=== PATIENT | female | born 1945 | race Two or more races ===

== ENCOUNTER 2023-10-11 15:48 | Inpatient (IN) | payer OTHER ==
[~2023-10-11] VITALS: Ht 157.5 cm; Wt 55.8 kg
[2023-10-11 16:18] LABS: Basophils # (auto) 0 10 ^3/uL (0-0.2); Basophils % (auto) 0.4 % (0.0-2.0); Eosinophils # (auto) 0.1 10 ^3/uL (0-0.8); Hematocrit 35.9 % (36.0-46.0); Hemoglobin 11.7 g/dL (12.2-16.2); Lymphocytes # (auto) 1.8 10 ^3/uL (0.4-5.4); Lymphocytes % (auto) 29.7 % (10.0-50.0); Mean Corpuscular Hemoglobin 27.5 pg (28.0-32.0); Mean Corpuscular Hgb Conc. 32.6 g/dL (32.0-36.0); Mean Corpuscular Volume 84.4 fL (80.0-100.0); Monocytes # (auto) 0.5 10 ^3/uL (0-1.3); Monocytes % (auto) 8.2 % (0.0-12.0); Neutrophils # (auto) 3.6 10 ^3/uL (1.6-8.6); Neutrophils % (auto) 60.7 % (37.0-80.0); Nucleated Red Blood Cells % 0.1 %; Red Blood Cells 4.25 10^6/uL (4.0-5.20); Red Cell Distribution Width 16.1 % (11.8-14.3)
[2023-10-11 16:19] LABS: Urine Epithelial Cast None Seen /hpf (<5)
[2023-10-11 16:27] LABS: Chloride 106 mmol/L (98-107); Potassium 3.5 mmol/L (3.5-5.1); Sodium 138 mmol/L (136-145)
[2023-10-11 16:28] LABS: Anion Gap 5 (5-15); Calcium 9.4 mg/dL (8.7-10.4); Carbon Dioxide 27 mmol/L (20-30)
[2023-10-11 16:33] LABS: BUN/Creatinine Ratio 15.8 (10.0-20.0); Blood Urea Nitrogen 15 mg/dL (9-23); Glucose 93 mg/dL (74-106)
[2023-10-11 16:38] LABS: Urine Bacteria NONE SEEN /hpf (None Seen); Urine Blood 1+ /uL (Negative); Urine Clarity Clear (Clear); Urine Color Yellow (Yellow); Urine Protein, UAD Negative (Negative); Urine Specific Gravity 1.016 (1.001-1.035); Urine Urobilinogen Normal (Negative); Urine WBC 1 /hpf (0 - 5); Urine pH 5.5 (5.0-8.0)
[2023-10-11] MEDS ORDERED: ONDANSETRON HCL 4 MG/2 ML VIAL IV ONE (17:00)
[2023-10-11] MEDS ORDERED: cefTRIAXone 1GM/50ML D5W 50 ML IV ONE (17:00)
[2023-10-11] MEDS ORDERED: SODIUM CHLORIDE 0.9% 1,000 ML IV ONE (17:00)
[2023-10-11] MEDS ORDERED: LOSA50TA46 PO (18:51)
[2023-10-11] MEDS ORDERED: LOVA40TA72 PO (18:51)
[2023-10-11] MEDS ORDERED: PANTOPRAZOLE 40 MG TAB PO ONE (19:00)
[2023-10-11] MEDS ORDERED: ONDANSETRON HCL 4 MG/2 ML VIAL IV PRN (19:00)
[2023-10-11] MEDS ORDERED: DOCUSATE SOD 100 MG CAP PO PRN (19:00)
[2023-10-11] MEDS ORDERED: ACETAMINOPHEN 325 MG TAB PO PRN (19:00)
[2023-10-11] MEDS ORDERED: HYDROcodone-ACET 5/325MG TAB PO PRN (19:00)
[2023-10-12] MEDS: PRAVASTATIN SODIUM 20 MG TAB PO SCH ×2 (01:04→21:59)
[2023-10-12 04:54] LABS: Basophils # (auto) 0 10 ^3/uL (0-0.2); Basophils % (auto) 0.6 % (0.0-2.0); Eosinophils # (auto) 0.1 10 ^3/uL (0-0.8); Eosinophils % (auto) 1.8 % (0.0-7.0); Hematocrit 33.9 % (36.0-46.0); Hemoglobin 11.1 g/dL (12.2-16.2); Lymphocytes # (auto) 1.7 10 ^3/uL (0.4-5.4); Lymphocytes % (auto) 30.4 % (10.0-50.0); Mean Corpuscular Hemoglobin 27.7 pg (28.0-32.0); Mean Corpuscular Hgb Conc. 32.9 g/dL (32.0-36.0); Mean Corpuscular Volume 84.3 fL (80.0-100.0); Monocytes # (auto) 0.5 10 ^3/uL (0-1.3); Monocytes % (auto) 8.6 % (0.0-12.0); Neutrophils # (auto) 3.3 10 ^3/uL (1.6-8.6); Neutrophils % (auto) 58.6 % (37.0-80.0); Nucleated Red Blood Cells % 0.1 %; Red Blood Cells 4.02 10^6/uL (4.0-5.20); Red Cell Distribution Width 15.6 % (11.8-14.3); White Blood Cell 5.6 10^3/uL (4.4-10.8)
[2023-10-12 05:02] LABS: Chloride 109 mmol/L (98-107); Potassium 3.8 mmol/L (3.5-5.1); Sodium 140 mmol/L (136-145)
[2023-10-12 05:03] LABS: Anion Gap 9 (5-15); Calcium 8.9 mg/dL (8.7-10.4); Carbon Dioxide 22 mmol/L (20-30)
[2023-10-12 05:07] LABS: Alkaline Phosphatase 88 U/L (46-116)
[2023-10-12 05:08] LABS: Blood Urea Nitrogen 13 mg/dL (9-23); Glucose 51 mg/dL (74-106)
[2023-10-12 05:10] LABS: Albumin 3.8 g/dL (3.2-4.8); Aspartate Aminotransferase 16 U/L (13-40); Bilirubin, Total 0.8 mg/dL (0.2-1.0); Total Protein 6.1 g/dL (5.7-8.2)
[2023-10-12 05:46] LABS: Alanine Aminotransferase 12 U/L (7-40)
[2023-10-12] MEDS: cefTRIAXone 1GM/50ML D5W 50 ML IV SCH (09:52)
[2023-10-12] MEDS: LOSARTAN POTASSIUM 50 MG TAB PO SCH (09:56)
[2023-10-12] MEDS ORDERED: PANTOPRAZOLE 40 MG TAB PO SCH (10:00)
[2023-10-12] MEDS: D5W/SOD CHLO 0.9% 1,000 ML IV SCH (13:03)
[2023-10-12 18:21] LABS: INR 1.13 (0.9-1.15); Partial Thromboplastin Time 28.3 SEC (24.5-34.5); Prothrombin Time 11.8 sec (9.3-11.8)
[2023-10-12 22:21] VITALS: PULSE 72; RESP 17; O2SAT 97
[2023-10-12 23:00] VITALS: BP 114/49; PULSE 67; RESP 19; TEMP 97.9; O2SAT 95
[2023-10-12 23:26] VITALS: BP 149/73; PULSE 68; RESP 18; TEMP 98.2; O2SAT 96
[2023-10-13] VITALS (7 sets, daily range): BP systolic 120–137; BP diastolic 53–58; PULSE 19–71; RESP 18–100; TEMP 97.9–98.2; O2SAT 95–100
[2023-10-13] MEDS: D5W/SOD CHLO 0.9% 1,000 ML IV SCH (00:46)
[2023-10-13] MEDS ORDERED: NALOXONE HCL 0.4 MG/ML VIAL ONE (08:36)
[2023-10-13] MEDS ORDERED: FLUMAZENIL 0.1 MG/ML INJ 10ML MDV IV ONE (08:37)
[2023-10-13] MEDS: cefTRIAXone 1GM/50ML D5W 50 ML IV SCH (09:00)
[2023-10-13] MEDS ORDERED: PANTOPRAZOLE 40 MG/10 ML VIAL INJ IV SCH (10:00)
[2023-10-13] MEDS: LOSARTAN POTASSIUM 50 MG TAB PO SCH (10:00)
[2023-10-13] MEDS ORDERED: SODIUM CHLORIDE LOCK 10 ML ONE (10:43)
[2023-10-13] MEDS ORDERED: LIDOCAINE VISCOUS 2% 15ML UD ONE (10:44)
[2023-10-13] MEDS: diphenhdrAMINE HCL 50 MG/1 ML VL ONE ×2 (11:07→11:14)
[2023-10-13] MEDS: MIDAZOLAM HCL 5 MG/ML-1ML VIAL ONE ×4 (11:07→11:18)
[2023-10-13] MEDS: fentaNYL CITRATE 100 MCG/2 ML VL ONE ×2 (11:07→11:14)
[2023-10-13] MEDS: SUCRALFATE 1 GM/10 ML ORAL SUSP PO SCH ×2 (17:00→21:57)
[2023-10-13] MEDS: PRAVASTATIN SODIUM 20 MG TAB PO SCH (21:57)
[2023-10-13] MEDS: PANTOPRAZOLE 40 MG/10 ML VIAL INJ IV SCH (21:57)
[2023-10-14 05:00] VITALS: BP 126/43; PULSE 66; RESP 19; TEMP 98.2; O2SAT 99
[2023-10-14] MEDS: SUCRALFATE 1 GM/10 ML ORAL SUSP PO SCH ×2 (06:01→12:14)
[2023-10-14 08:00] VITALS: BP 119/60; PULSE 66; RESP 18; TEMP 98.4; O2SAT 95
[2023-10-14 09:00] VITALS: BP 119/60; PULSE 66; RESP 18; TEMP 98.4; O2SAT 95
[2023-10-14] MEDS: PANTOPRAZOLE 40 MG/10 ML VIAL INJ IV SCH (09:31)
[2023-10-14] MEDS: LOSARTAN POTASSIUM 50 MG TAB PO SCH (09:31)
[2023-10-14] MEDS: cefTRIAXone 1GM/50ML D5W 50 ML IV SCH (09:31)
[2023-10-14 13:00] VITALS: BP 133/59; PULSE 79; RESP 19; TEMP 97.9; O2SAT 97
[2023-10-14 14:50] VITALS: BP 133/59; PULSE 79; RESP 19; TEMP 97.9; O2SAT 97
[2023-10-14 17:00] VITALS: BP 104/70; PULSE 72; RESP 18; TEMP 98.1; O2SAT 98
== END 2023-10-14 17:34 | disposition home or self-care (01) | DRG 394 ==
LOC: ER 15:48 → OVERFLOW 18:49 → EAST 10-12 23:00
PROVIDERS: ADMIT Nurse Practitioner Family; ATTEND Nurse Practitioner Acute Care
PROC: 0DB68ZX Excision of Stomach, Via Natural or Artificial Opening Endoscopic, Diagnostic (ICD-10-PCS; 2023-10-13)
PROC: 0DB48ZX Excision of Esophagogastric Junction, Via Natural or Artificial Opening Endoscopic, Diagnostic (ICD-10-PCS; 2023-10-13)
PROC: 0DB98ZX Excision of Duodenum, Via Natural or Artificial Opening Endoscopic, Diagnostic (ICD-10-PCS; principal; 2023-10-13 11:01)
DX: T18.128A Food in esophagus causing other injury, initial encounter (principal); N30.00 Acute cystitis without hematuria; E78.5 Hyperlipidemia, unspecified; I10 Essential (primary) hypertension; K44.9 Diaphragmatic hernia without obstruction or gangrene; R13.12 Dysphagia, oropharyngeal phase; K29.70 Gastritis, unspecified, without bleeding; K21.00 Gastro-esophageal reflux disease with esophagitis, without bleeding; K22.2 Esophageal obstruction; Z87.11 Personal history of peptic ulcer disease
CPT/HCPCS: 36415; 71045; 74176; 80048; 80053; 81001; 85025; 85610; 85730; 86850; 86900; 86901; 87086; 93005; 96365; 96375; C9113; G0378; J2250; J2405

== ENCOUNTER 2023-10-21 09:32 | Emergency (ER) | payer OTHER ==
[~2023-10-21] VITALS: Ht 157.5 cm; Wt 55.4 kg
[~2023-10-21 09:32] MED LIST: LOSA50TA46 PO; LOVA40TA72 PO
[2023-10-21 10:16] VITALS: BP 135/61; PULSE 81; RESP 16; TEMP 98; O2SAT 97
[2023-10-21] MEDS ORDERED: AMOX875T3 PO (10:26)
[2023-10-21] MEDS ORDERED: ACET-1080 PO (10:26)
== END 2023-10-21 10:30 | disposition home or self-care (01) ==
LOC: ER 09:32
DX: H66.92 Otitis media, unspecified, left ear (principal); I10 Essential (primary) hypertension; Z79.2 Long term (current) use of antibiotics; Z79.899 Other long term (current) drug therapy

== ENCOUNTER → 2024-06-12 | Outpatient (CLI) | payer OTHER, MEDICAID ==
[~2024-06-12] MED LIST changes: +ACET-1080 PO; +AMOX875T3 PO; +LOSA-534 PO; -LOSA50TA46 PO
== END | disposition home or self-care (01) ==
LOC: EDSTATUS 09:36 → XYW 09:37
PROVIDERS: ATTEND Internal Medicine
DX: Z01.810 Encounter for preprocedural cardiovascular examination (principal); I10 Essential (primary) hypertension
CPT/HCPCS: 93306

== ENCOUNTER 2024-07-12 06:10 | Inpatient (IN) | payer OTHER, MEDICAID ==
[2024-07-10 12:40] LABS: Urine Bacteria None Seen /hpf (None Seen); Urine WBC None Seen /hpf (0 - 5)
[2024-07-10 12:56] LABS: Basophils # (auto) 0 10 ^3/uL (0-0.2); Basophils % (auto) 0.5 % (0.0-2.0); Eosinophils # (auto) 0.1 10 ^3/uL (0-0.8); Eosinophils % (auto) 0.8 % (0.0-7.0); Hematocrit 37.7 % (36.0-46.0); Hemoglobin 12.5 g/dL (12.2-16.2); Lymphocytes # (auto) 1.9 10 ^3/uL (0.4-5.4); Lymphocytes % (auto) 29.6 % (10.0-50.0); Mean Corpuscular Hemoglobin 28.8 pg (28.0-32.0); Mean Corpuscular Hgb Conc. 33.3 g/dL (32.0-36.0); Mean Corpuscular Volume 86.6 fL (80.0-100.0); Monocytes # (auto) 0.6 10 ^3/uL (0-1.3); Monocytes % (auto) 8.9 % (0.0-12.0); Neutrophils # (auto) 3.9 10 ^3/uL (1.6-8.6); Neutrophils % (auto) 60.2 % (37.0-80.0); Platelet Count (auto) 275 10^3/uL (140-450); Red Blood Cells 4.35 10^6/uL (4.0-5.20); Red Cell Distribution Width 15.3 % (11.8-14.3); White Blood Cell 6.4 10^3/uL (4.4-10.8)
[2024-07-10 13:06] LABS: Urine Blood Negative /uL (Negative); Urine Clarity Clear (Clear); Urine Color Yellow (Yellow); Urine Protein, UAD Negative (Negative); Urine Specific Gravity 1.027 (1.001-1.035); Urine Urobilinogen Normal (Negative)
[2024-07-10 13:15] LABS: INR 1.03 (0.9-1.15); Prothrombin Time 10.9 sec (9.3-11.8)
[2024-07-10 13:43] LABS: Alanine Aminotransferase 13 U/L (7-40); Albumin 4.2 g/dL (3.2-4.8); Alkaline Phosphatase 121 U/L (46-116); Anion Gap 5 (5-15); Aspartate Aminotransferase 16 U/L (13-40); Blood Urea Nitrogen 18 mg/dL (9-23); Calcium 9.6 mg/dL (8.7-10.4); Carbon Dioxide 28 mmol/L (20-31); Chloride 106 mmol/L (98-107); Glucose 83 mg/dL (74-106); Potassium 4.4 mmol/L (3.5-5.1); Sodium 139 mmol/L (136-145)
[2024-07-10 13:44] LABS: Bilirubin, Total 0.4 mg/dL (0.2-1.0); Total Protein 6.8 g/dL (5.7-8.2)
[~2024-07-12] VITALS: Ht 157.5 cm; Wt 66.5 kg
[2024-07-12] VITALS (7 sets, daily range): BP systolic 117–121; BP diastolic 46–72; PULSE 76–87; RESP 14–18; TEMP 97.6–99; O2SAT 92–100
[~2024-07-12 06:10] MED LIST changes: -AMOX875T3 PO; +OMEP20TA PO
[2024-07-12] MEDS: ceFAZolin 2 GM/D5W100ml 100 ML IV ONE (06:46)
[2024-07-12] MEDS ORDERED: ROCURONIUM 10MG/ML 10ML VIAL IV ONE ×2 (07:05→07:07)
[2024-07-12] MEDS ORDERED: PROPOFOL 10 MG/ML 20 ML IV ONE ×2 (07:05→07:07)
[2024-07-12] MEDS ORDERED: LIDOCAINE 1% INJ PF 5ML AMP ONE ×2 (07:07→07:39)
[2024-07-12] MEDS ORDERED: MIDAZOLAM HCL 2MG/2ML 2ml VIAL (1mg/ml) ONE (07:09)
[2024-07-12] MEDS: BUPIVACAINE 0.25% INJ 50ML VIAL ONE (07:14)
[2024-07-12] MEDS: LIDOCAINE W/ EPINEPHRINE 1% 20ML VIAL ONE (07:14)
[2024-07-12] MEDS ORDERED: DexAMETHasone SOD PHOS 10MG/1ML VIAL INJ ONE (07:39)
[2024-07-12] MEDS ORDERED: ONDANSETRON HCL 4 MG/2 ML VIAL ONE (07:39)
[2024-07-12] MEDS ORDERED: KETOROLAC TROMETH 30 MG/ML 1ML VIAL ONE (07:39)
[2024-07-12] MEDS ORDERED: MORPHINE SULF PF 5 MG/10 ML VIAL ONE (07:55)
[2024-07-12] MEDS ORDERED: SUGAMMADEX 200mg/2ml Vial (100MG/ML) IV ONE (08:16)
[2024-07-12] MEDS ORDERED: NALOXONE HCL 0.4 MG/ML VIAL IV PRN (08:30)
[2024-07-12] MEDS ORDERED: MORPHINE SULFATE 4 MG/ML SYR/VIAL IV PRN (08:30)
[2024-07-12] MEDS: ONDANSETRON HCL 4 MG/2 ML VIAL IV ONE (08:30)
[2024-07-12] MEDS: MORPHINE SULFATE 4 MG/ML SYR/VIAL IV PRN (08:44)
[2024-07-12] MEDS ORDERED: D5W/SOD CHL 0.45%/KCL 20MEQ 1,000 ML IV SCH (08:45)
[2024-07-12] MEDS: HYDROmorphone HCL 2 MG/ML VL/or syr ONE (09:10)
[2024-07-12] MEDS: HYDROmorphone HCL 2 MG/ML VL/or syr IV ONE (09:38)
[2024-07-12] MEDS: PANTOPRAZOLE 40 MG TAB PO SCH (11:05)
[2024-07-12] MEDS: D5W/SOD CHL 0.45%/KCL 20MEQ 1,000 ML IV SCH (11:05)
[2024-07-12] MEDS: ceFAZolin 2 GM/D5W50ml 50 ML IV SCH (14:00)
[2024-07-12] MEDS: ACETAMINOPHEN/CODEINE#3 (300/30mg) TAB PO PRN (18:11)
[2024-07-13] VITALS (7 sets, daily range): BP systolic 92–136; BP diastolic 47–61; PULSE 74–88; RESP 16–20; TEMP 97.4–99; O2SAT 91–99
[2024-07-13 05:44] LABS: Basophils # (auto) 0 10 ^3/uL (0-0.2); Basophils % (auto) 0.2 % (0.0-2.0); Eosinophils # (auto) 0 10 ^3/uL (0-0.8); Eosinophils % (auto) 0.1 % (0.0-7.0); Hematocrit 34.5 % (36.0-46.0); Hemoglobin 11.8 g/dL (12.2-16.2); Lymphocytes # (auto) 1.3 10 ^3/uL (0.4-5.4); Lymphocytes % (auto) 16.6 % (10.0-50.0); Mean Corpuscular Hemoglobin 29.6 pg (28.0-32.0); Mean Corpuscular Hgb Conc. 34.2 g/dL (32.0-36.0); Mean Corpuscular Volume 86.6 fL (80.0-100.0); Monocytes # (auto) 0.6 10 ^3/uL (0-1.3); Monocytes % (auto) 7.3 % (0.0-12.0); Neutrophils # (auto) 5.7 10 ^3/uL (1.6-8.6); Neutrophils % (auto) 75.8 % (37.0-80.0); Nucleated Red Blood Cells % 0.1 %; Platelet Count (auto) 216 10^3/uL (140-450); Red Blood Cells 3.98 10^6/uL (4.0-5.20); Red Cell Distribution Width 14.9 % (11.8-14.3); White Blood Cell 7.6 10^3/uL (4.4-10.8)
[2024-07-13 06:01] LABS: Alanine Aminotransferase 26 U/L (7-40); Albumin 3.8 g/dL (3.2-4.8); Alkaline Phosphatase 90 U/L (46-116); Anion Gap 6 (5-15); Aspartate Aminotransferase 44 U/L (13-40); BUN/Creatinine Ratio 12.1 (10.0-20.0); Blood Urea Nitrogen 12 mg/dL (9-23); Calcium 9.3 mg/dL (8.7-10.4); Carbon Dioxide 26 mmol/L (20-31); Chloride 104 mmol/L (98-107); Glucose 98 mg/dL (74-106); Potassium 4.2 mmol/L (3.5-5.1); Sodium 136 mmol/L (136-145)
[2024-07-13 06:02] LABS: Bilirubin, Total 0.7 mg/dL (0.2-1.0)
[2024-07-13] MEDS: HYDROmorphone HCL 2 MG/ML VL/or syr IV PRN (14:47)
[2024-07-13] MEDS ORDERED: MORPHINE SULFATE INJ 2 MG/ml SYRG IV PRN (15:30)
[2024-07-13] MEDS: D5W/SOD CHL 0.45%/KCL 20MEQ 1,000 ML IV SCH (16:52)
[2024-07-13] MEDS: ONDANSETRON HCL 4 MG/2 ML VIAL IV PRN (21:31)
[2024-07-14 01:00] VITALS: BP 116/56; PULSE 78; RESP 20; TEMP 98.1; O2SAT 95
[2024-07-14 05:00] VITALS: BP 137/58; PULSE 71; RESP 18; TEMP 97.8; O2SAT 93
[2024-07-14 06:10] LABS: Alanine Aminotransferase 13 U/L (7-40); Albumin 3.8 g/dL (3.2-4.8); Alkaline Phosphatase 97 U/L (46-116); Anion Gap 2 (5-15); Aspartate Aminotransferase 27 U/L (13-40); BUN/Creatinine Ratio 8.1 (10.0-20.0); Bilirubin, Total 0.5 mg/dL (0.2-1.0); Blood Urea Nitrogen 8 mg/dL (9-23); Calcium 9.3 mg/dL (8.7-10.4); Carbon Dioxide 27 mmol/L (20-31); Chloride 108 mmol/L (98-107); Glucose 92 mg/dL (74-106); Potassium 4.5 mmol/L (3.5-5.1); Sodium 137 mmol/L (136-145)
[2024-07-14 06:11] LABS: Basophils # (auto) 0 10 ^3/uL (0-0.2); Basophils % (auto) 0.4 % (0.0-2.0); Eosinophils # (auto) 0.1 10 ^3/uL (0-0.8); Eosinophils % (auto) 1.1 % (0.0-7.0); Hematocrit 34.3 % (36.0-46.0); Hemoglobin 11.7 g/dL (12.2-16.2); Lymphocytes # (auto) 1.5 10 ^3/uL (0.4-5.4); Lymphocytes % (auto) 27.4 % (10.0-50.0); Mean Corpuscular Hemoglobin 29.3 pg (28.0-32.0); Mean Corpuscular Hgb Conc. 34.1 g/dL (32.0-36.0); Mean Corpuscular Volume 85.9 fL (80.0-100.0); Monocytes # (auto) 0.4 10 ^3/uL (0-1.3); Monocytes % (auto) 8.1 % (0.0-12.0); Neutrophils # (auto) 3.4 10 ^3/uL (1.6-8.6); Platelet Count (auto) 232 10^3/uL (140-450); Red Blood Cells 3.99 10^6/uL (4.0-5.20); Red Cell Distribution Width 14.9 % (11.8-14.3); White Blood Cell 5.5 10^3/uL (4.4-10.8)
[2024-07-14 09:00] VITALS: BP 130/48; PULSE 80; RESP 16; TEMP 98.6; O2SAT 96
[2024-07-14] MEDS ORDERED: IBU600T PO (11:59)
[2024-07-14] MEDS ORDERED: CEPH250C PO (11:59)
[2024-07-14 13:00] VITALS: BP 123/53; PULSE 69; RESP 16; TEMP 97.7; O2SAT 97
== END 2024-07-14 13:27 | disposition home or self-care (01) | DRG 419 ==
LOC: SUR 06:10 → EDUNIT# 07:00 → TELE-WESTW 10:26 → WEST WING 07-13 01:21
PROVIDERS: ADMIT Internal Medicine; ATTEND Student in an Organized Health Care Education/Training Program
PROC: 0FT44ZZ Resection of Gallbladder, Percutaneous Endoscopic Approach (ICD-10-PCS; principal; 2024-07-12 07:18)
DX: K80.10 Calculus of gallbladder with chronic cholecystitis without obstruction (principal); K21.9 Gastro-esophageal reflux disease without esophagitis; K66.0 Peritoneal adhesions (postprocedural) (postinfection); K82.8 Other specified diseases of gallbladder; I10 Essential (primary) hypertension; E78.5 Hyperlipidemia, unspecified; Z79.899 Other long term (current) drug therapy
CPT/HCPCS: 36415; 80053; 81001; 85025; 85610; 85730; 86850; 86900; 86901; G0378; J1100; J1885; J2250; J2405; J2704; J3490

== ENCOUNTER 2024-07-21 18:20 | Emergency (ER) | payer OTHER, MEDICAID ==
[~2024-07-21] VITALS: Ht 157.5 cm; Wt 55.4 kg
[~2024-07-21 18:20] MED LIST changes: +CEPH250C PO; +IBU600T PO
[2024-07-21 19:30] LABS: Basophils # (auto) 0 10 ^3/uL (0-0.2); Basophils % (auto) 0.2 % (0.0-2.0); Eosinophils # (auto) 0 10 ^3/uL (0-0.8); Eosinophils % (auto) 0.1 % (0.0-7.0); Hematocrit 32.8 % (36.0-46.0); Hemoglobin 11.1 g/dL (12.2-16.2); Lymphocytes # (auto) 0.8 10 ^3/uL (0.4-5.4); Lymphocytes % (auto) 6.2 % (10.0-50.0); Mean Corpuscular Hemoglobin 28.8 pg (28.0-32.0); Mean Corpuscular Hgb Conc. 33.8 g/dL (32.0-36.0); Mean Corpuscular Volume 85.5 fL (80.0-100.0); Monocytes # (auto) 0.5 10 ^3/uL (0-1.3); Monocytes % (auto) 3.5 % (0.0-12.0); Neutrophils # (auto) 11.7 10 ^3/uL (1.6-8.6); Platelet Count (auto) 403 10^3/uL (140-450); Red Blood Cells 3.84 10^6/uL (4.0-5.20); Red Cell Distribution Width 14.3 % (11.8-14.3)
[2024-07-21 19:41] LABS: Chloride 101 mmol/L (98-107); Potassium 4.1 mmol/L (3.5-5.1); Sodium 133 mmol/L (136-145)
[2024-07-21 19:42] LABS: Anion Gap 7 (5-15); Calcium 9.4 mg/dL (8.7-10.4); Carbon Dioxide 25 mmol/L (20-31)
[2024-07-21 19:47] LABS: BUN/Creatinine Ratio 18.1 (10.0-20.0); Blood Urea Nitrogen 19 mg/dL (9-23); Glucose 92 mg/dL (74-106)
[2024-07-21 19:48] LABS: Urine Bacteria FEW /hpf (None Seen); Urine Blood 1+ /uL (Negative); Urine Clarity Clear (Clear); Urine Color Yellow (Yellow); Urine Mucus FEW (None Seen); Urine Protein, UAD 2+ (Negative); Urine Specific Gravity 1.037 (1.001-1.035); Urine Urobilinogen 8 mg/dL (Negative); Urine WBC 14 /hpf (0 - 5)
[2024-07-21] MEDS: SULFAMETHOX W/TRIMETH(800/160MG) DS TAB PO ONE (19:49)
[2024-07-21] MEDS: ACETAMINOPHEN 325 MG TAB PO ONE (19:49)
[2024-07-21] MEDS: ONDANSETRON ODT 4 MG TAB PO ONE (19:49)
[2024-07-21 19:55] VITALS: BP 134/62; PULSE 97; RESP 17; O2SAT 96
[2024-07-21] MEDS ORDERED: BACDST PO (20:28)
[2024-07-21] MEDS ORDERED: ACET500T58 PO (20:28)
[2024-07-21] MEDS ORDERED: ZOFR4T PO (20:28)
[2024-07-21 20:58] VITALS: TEMP 98.6
== END 2024-07-21 21:00 | disposition home or self-care (01) ==
LOC: ER 18:20
DX: N39.0 Urinary tract infection, site not specified (principal); G89.18 Other acute postprocedural pain; I10 Essential (primary) hypertension; Z79.899 Other long term (current) drug therapy; Z87.11 Personal history of peptic ulcer disease; Z90.49 Acquired absence of other specified parts of digestive tract
CPT/HCPCS: 36415; 80048; 81001; 85025; 99284; Q0162